=== PATIENT | male | born 1965 | race Caucasian/White ===

== ENCOUNTER 2021-11-30 16:41 | Emergency (ER) | payer OTHER, SELFPAY ==
[2021-11-30 16:42] VITALS: BP 130/82; PULSE 77; RESP 18; TEMP 37.2; O2SAT 95; BMI 22.5
--- NOTE | 2021-11-30 16:54 | EX.ED.UPPERE ---
HPI History of Present Illness Chief Complaint: Upper Extremity Injury Informant: patient and spouse/S.O. Narrative Narrative: 56-year-old male presenting to the emergency room with left shoulder injury. Patient states that he was at work today, attempting to push a box but the box did not move. He was at a bit of an angle to the box and felt a pop in the posterior aspect of his left shoulder. Since that time he has had pain with any movement. He notes it is hard for him due to the pain to lift his shoulder into abduction or even bring it anteriorly. He notes the elbow feels fine. He is right-handed. [facility] Medical History (Updated 11/30/21 @ 16:[address] Justyn Isidro DO) Benign essential HTN History of immunosuppression therapy Membranous glomerulonephritis Home Medications amlodipine [Norvasc] 10 mg PO DAILY 08/13/16 [History Last Taken Unknown] aspirin [Aspir-Low] 81 mg PO DAILY 08/13/16 [History Last Taken Unknown] atorvastatin 80 mg PO QHS 08/13/16 [History Last Taken Unknown] famotidine 20 mg PO DAILY 08/13/16 [History Last Taken Unknown] hydrochlorothiazide 25 mg PO DAILY 08/13/16 [History Last Taken Unknown] lisinopril 20 mg PO BID 08/13/16 [History Last Taken Unknown] metoprolol tartrate 150 mg PO BID 08/13/16 [History Last Taken Unknown] mycophenolate sodium 360 mg PO BID 08/13/16 [History Last Taken Unknown] mycophenolate sodium [Myfortic] 360 mg PO BID 08/13/16 [History Last Taken Unknown] prednisone 5 mg PO DAILY 08/13/16 [History Last Taken Unknown] tacrolimus 3 mg PO DAILY 08/13/16 [History Last Taken Unknown] Allergy/AdvReac Type Severity Reaction Status Date / Time sulfamethoxazole Allergy Diarrhea Verified 11/30/21 16:44 [From ] trimethoprim [From ] Allergy Diarrhea Verified 11/30/21 16:44 Surgical History Hx of kidney transplant Social History (Updated 11/30/21 @ 16:[address] Justyn Isidro DO) current gender identity: male Smoking Status: Never smoker ROS ROS ED Constitutional Constitutional ED: Denies chills, fever(s) or weight loss Eyes Eyes: Denies change in vision or diplopia ENT ENT ED: Denies ear pain, rhinorrhea or sore throat Cardiovascular Cardiovascular: Denies chest pain, orthopnea, palpitations or racing heartbeat Respiratory/Chest Respiratory/Chest: Denies cough, dyspnea or orthopnea Gastrointestinal Gastrointestinal: Denies abdominal pain, diarrhea, nausea or vomiting Genitourinary Genitourinary ED: Denies dysuria, hematuria or urinary frequency Musculoskeletal Musculoskeletal: Reports other Details: See history of present illness ; Denies arthralgias or myalgias Integumentary Denies abscess or rash Neurologic Neurologic: Denies headache(s) or weakness Psychiatric Psychiatric: Denies anxiety, depression, suicidal ideation or suicidal thoughts Endocrine Endocrinology: Denies polydipsia, polyphagia or polyuria Allergic/Immunologic Allergic/Immunologic ED: Denies mouth swelling, tongue swelling or urticaria EXAM Physical Exam Const Vital Signs: 11/30/21 16:42 Temperature 99 F Temperature Source Temporal Pulse Rate 77 Respiratory Rate 18 Blood Pressure 130/82 H Blood Pressure Mean 98 Pulse Ox 95 Oxygen Delivery Method Room Air Positive well nourished and well developed General Appearance ED: well developed HEENT Reports normocephalic, head/scalp atraumatic and moist mucous membranes normocephalic and atraumatic Eyes PERRL and EOMs intact bilaterally Neck no lymphadenopathy, supple and no JVD Resp normal respiratory effort and clear to auscultation bilaterally Cardio regular rate, regular rhythm and no murmurs GI normal to inspection, nondistended, normoactive bowel sounds and non-tender Palpation: soft Back/Spine no CVA tenderness and normal ROM Extremity Extremity Narrative: Patient has limited range of motion particularly with abduction and anterior movement of the shoulder. No pain on palpation of the anterior aspect of the shoulder or over the supraspinatus muscle. Biceps and triceps appears intact distal to the shoulder joint arm appears normal. General Extremety ED: Negative for edema General Extremity: Negative for edema Neuro oriented x3 and CN's II-XII intact bilaterally Sensorium / Orientation: alert Motor Exam: strength 5/5 throughout Psych mental status grossly normal Mood & Affect: Negative for depressed or tearful Skin no rashes or lesions noted and no wounds MDM MDM MDM Narrative Medical decision making narrative: My interpretation of the plain films of the left shoulder is no fracture. I do not see any calcific tendinosis. Biopsy findings patient is to be treated as a muscle strain. If he is not improving most likely need closer look at the shoulder with MRI. Patient will follow-up with Workmen's Comp. return if worsening or concerns he declined pain medicine while in the department Discharge Plan Triage Chief Complaint: Upper Extremity Injury ED Provider: Justyn Isidro Dx/Rx/DC Orders Clinical Impression: Muscle strain of left shoulder Instructions: Rotator Cuff Injury Prescriptions: No Action prednisone 5 MG tablet 5 mg PO DAILY RF: 0 aspirin [Aspir-Low] 81 MG Tablet.Dr 81 mg PO DAILY RF: 0 amlodipine [Norvasc] 10 MG tablet 10 mg PO DAILY RF: 0 lisinopril 10 MG tablet 20 mg PO BID RF: 0 tacrolimus 1 MG capsule 3 mg PO DAILY RF: 0 mycophenolate sodium [Myfortic] 360 MG Tablet.Dr 360 mg PO BID RF: 0 atorvastatin 80 MG tablet 80 mg PO QHS RF: 0 metoprolol tartrate 100 MG tablet 150 mg PO BID RF: 0 famotidine 20 MG tablet 20 mg PO DAILY RF: 0 hydrochlorothiazide 25 MG tablet 25 mg PO DAILY RF: 0 mycophenolate sodium 360 MG Tablet.Dr 360 mg PO BID RF: 0 Primary Care Provider: Dave Aviles Referrals: Dave Aviles MD [Primary Care Provider] - [facility] [NON-STAFF] - As soon as possible (for workers compensation follow up) Disposition Disposition: Home, Self Care
--- NOTE | 2021-11-30 17:00 | RAD_ITS ---
STUDY: X-RAY - LEFT SHOULDER REASON FOR EXAM: Male, 56 years old. pain TECHNIQUE: 4 view(s) of the shoulder. COMPARISON: None. FINDINGS: Normal glenohumeral articulation. Normal acromioclavicular joint. Normal acromion. Normal humeral head and visualized proximal humerus. The soft tissue structures are unremarkable. Normal visualized pulmonary apex. RAD/Shoulder min 2 Views IMPRESSION: Normal x-ray examination of the shoulder. Electronically Signed: August Watts MD at 17:17 EDT ,
== END 2021-11-30 17:24 | disposition home or self-care (01) ==
LOC: ED 17:01
PROVIDERS: Emergency Provider Emergency Medicine; PCP Internal Medicine; Visit Provider Emergency Medicine
DX: S46.912A Strain of unspecified muscle, fascia and tendon at shoulder and upper arm level, left arm, initial encounter (principal); I10 Essential (primary) hypertension; X50.9XXA Other and unspecified overexertion or strenuous movements or postures, initial encounter; Y93.89 Activity, other specified; Y99.0 Civilian activity done for income or pay; Y92.89 Other specified places as the place of occurrence of the external cause; Z79.899 Other long term (current) drug therapy; Z79.82 Long term (current) use of aspirin; Z79.52 Long term (current) use of systemic steroids; Z94.0 Kidney transplant status
CPT/HCPCS: 73030; 99283

== ENCOUNTER → 2021-12-23 | Outpatient (CLI) | payer OTHER, SELFPAY ==
--- NOTE | 2021-12-23 17:03 | MRI_ITS ---
STUDY: MRI LEFT SHOULDER REASON FOR EXAM: Male, 56 years old. L shoulder strain, pain following injury on 11/30/21 L shoulder strain, pain following injury on 11/30/21 TECHNIQUE: Standardized fat and water weighted pulse sequences were obtained in all 3 orthogonal planes. COMPARISON: xr Nov 30 2021 4:58pm . FINDINGS: Normal supraspinatus tendon. Normal infraspinatus tendon. Normal subscapularis tendon. Normal teres minor tendon. Normal supraspinatus muscle. Normal infraspinatus muscle. Normal subscapularis muscle. Normal teres minor muscle. Normal glenohumeral articulation. Normal humeral head and visualized proximal humerus. Normal biceps labral complex. Normal intracapsular long biceps tendon. Normal labrum. Normal capsulo- ligamentous complex. Normal rotator interval. There is mild osteoarthritis of the acromioclavicular articulation. There is a healing scapular fracture. Normal visualized coracohumeral and coracoacromial ligaments. Normal quadrilateral space. Normal axillary space. Normal deltoid muscle. Normal trapezius muscle. MRI/Upper Ext Joint Only(Routine) IMPRESSION: There is a healing scapular fracture. Electronically Signed: Jacob Diego MD at 18:55 EDT Reading Location ID and State: [facility] / [place] , Service support ,
== END | disposition home or self-care (01) ==
LOC: MRI 17:03
PROVIDERS: PCP Internal Medicine; Visit Provider Physician Assistant Surgical
DX: S46.912A Strain of unspecified muscle, fascia and tendon at shoulder and upper arm level, left arm, initial encounter (principal)
CPT/HCPCS: 73221

== ENCOUNTER 2023-04-14 17:10 | Emergency (ER) | payer OTHER, SELFPAY ==
[2023-04-14 17:10] VITALS: BP 124/91; PULSE 100; RESP 14; TEMP 36.7; O2SAT 99
[2023-04-14 17:12] VITALS: BMI 23.2
--- NOTE | 2023-04-14 17:29 | EDS_ITS ---
HPI <SERGE Zamudio - Last Filed: 04/14/23 17:34> History of Present Illness Chief Complaint: Laceration Narrative Narrative: Patient is a 57-year-old male with history of renal transplant, up-to-date on his tetanus vaccination presents to the emergency department after clipping the tip of the left fourth finger with farzana clippers. Patient denies any other injury. Bleeding controlled. Patient only blood thinners. PFSH <SERGE Zamudio - Last Filed: 04/14/23 17:34> [facility] Medical History Benign essential HTN Diabetes History of immunosuppression therapy Membranous glomerulonephritis Home Medications amlodipine 10 mg tablet (Norvasc) 10 mg PO DAILY 08/13/16 [History Last Taken Unknown] aspirin 81 mg tablet,delayed release (Aspir-Low) 81 mg PO DAILY 08/13/16 [History Last Taken Unknown] atorvastatin 80 mg tablet 80 mg PO QHS 08/13/16 [History Last Taken Unknown] famotidine 20 mg tablet 20 mg PO DAILY 08/13/16 [History Last Taken Unknown] hydrochlorothiazide 25 mg tablet 25 mg PO DAILY 08/13/16 [History Last Taken Unknown] lisinopril 10 mg tablet 20 mg PO BID 08/13/16 [History Last Taken Unknown] metoprolol tartrate 100 mg tablet 150 mg PO BID 08/13/16 [History Last Taken Unknown] mycophenolate sodium 360 mg tablet,delayed release 360 mg PO BID 08/13/16 [History Last Taken Unknown] mycophenolate sodium 360 mg tablet,delayed release (Myfortic) 360 mg PO BID 08/13/16 [History Last Taken Unknown] prednisone 5 mg tablet 5 mg PO DAILY 08/13/16 [History Last Taken Unknown] tacrolimus 1 mg capsule, immediate-release 3 mg PO DAILY 08/13/16 [History Last Taken Unknown] Allergy/AdvReac Type Severity Reaction Status Date / Time sulfamethoxazole Allergy Diarrhea Verified 04/14/23 17:10 [From ] trimethoprim [From ] Allergy Diarrhea Verified 04/14/23 17:10 Surgical History Hx of kidney transplant Social History Smoking Status: Never smoker ROS <SERGE Zamudio - Last Filed: 04/14/23 17:34> ROS ED ROS Narrative Constitutional: Negative for fever, chills, weight loss, weakness Eyes: Negative for vision loss, vision change, double vision ENT: Negative for any sore throat, ear pain, congestion Cardiovascular: Negative for any chest pain, tightness, palpitations Respiratory: Negative for any cough, sputum production, hemoptysis, dyspnea, dyspnea on exertion, orthopnea Gastrointestinal: Negative for any abdominal pain, nausea, vomiting, diarrhea, constipation, blood in stool, blood in vomit : Negative for any urinary frequency, dysuria, retention, blood in urine Muscle skeletal: Negative for any muscle joint pain, stiffness, myalgias, arthralgias, neck pain, back pain Neurological: Negative for any headache, syncope, numbness or tingling, dizziness Skin: Negative for any rashes, lumps, itching, abrasions. Positive for laceration to the tip of the left fourth finger Psychiatric: Negative for any depression, anxiety, stress, suicidal ideation, homicidal ideation Hematologic: Negative for any easy bruising, excessive bruising, easy bleeding Allergies: Negative for any eczema, hives, rash EXAM <SERGE Zamudio - Last Filed: 04/14/23 17:34> Physical Exam Narrative Exam Narrative: Vital signs reviewed. Extremities: No peripheral edema, no signs of gross trauma or deformity. Active full range of motion of all extremities. Patient has a small flap-like laceration that is superficial to the distal tip of the left fourth finger. No neurological focal deficit. Neuro: Cranial nerves II through XII intact, no focal neurological deficits. Skin: Clean dry and intact with no rash, purpura, petechiae, vesicles or pustules. Backs/flank: No CVA tenderness, no midline spinal tenderness, no deformity. Psych: Normal mood and affect. No SI, HI or acute psychosis. Const Vital Signs: 04/14/23 17:10 Temperature 98.0 F Temperature Source Temporal Pulse Rate 100 Respiratory Rate 14 Blood Pressure 124/91 H Blood Pressure Mean 102 Pulse Ox 99 Oxygen Delivery Method Room Air MDM <SERGE Zamudio - Last Filed: 04/14/23 17:34> MDM Treatment and Re-Evaluation Narrative: Patient appears generally well, patient appears nontoxic, vital signs are stable. Presenting to the emergency department for flap-like laceration to the distal tip of the fourth finger. This does not require sutures. The skin and is elevated will be cut off, this is not viable. There is no bleeding at this time. Patient will have a bacitracin dressing applied. Patient tetanus vaccination updated. He is instructed to keep the area clean and dry, he is instructed to return for any worsening symptoms. Patient stable for discharge <Dr. Chester Sol MD - Last Filed: 04/14/23 17:39> [facility] MDM Narrative Medical decision making narrative: I have personally performed a face to face assessment of the patient and have reviewed the SRINIVASA Note. I performed a substantive portion of the visit including all aspects of the following. My stover findings include: History is [57-year-old male with prior renal transplant. Laceration to the tip of his left ring finger. No other injuries. Tetanus up-to-date.] Exam is [male male no acute distress. Vital signs stable afebrile. H EENT exam unremarkable. Lungs clear. Heart regular rhythm. Abdomen soft nontender. Moving all 4 extremities. Left hand ring finger distal tip is a superficial flap laceration. No bleeding. No infection. No foreign body. Discussed with patient laceration repair versus resection of the flap and he chose that. Flap was removed.] Medical Decision Making [patient's wound care. Discharge.] Other additions or changes: [None] Discharge Plan Triage Chief Complaint: Laceration ED Midlevel Provider: Edvin Mcdonald ED Provider: Chester Sol Dx/Rx/DC Orders Clinical Impression: Laceration Instructions: ED Laceration Small or ..., ED Laceration Minimize Scars Prescriptions: No Action prednisone 5 MG tablet 5 mg PO DAILY aspirin [Aspir-Low] 81 MG tablet,delayed release (DR/EC) 81 mg PO DAILY amlodipine [Norvasc] 10 MG tablet 10 mg PO DAILY Patient Comments: patient unsure of dose, thinks it is 10mg lisinopril 10 MG tablet 20 mg PO BID tacrolimus 1 MG capsule 3 mg PO DAILY Patient Comments: 2mg in AM, 1mg in PM mycophenolate sodium [Myfortic] 360 MG tablet,delayed release (DR/EC) 360 mg PO BID atorvastatin 80 MG tablet 80 mg PO QHS metoprolol tartrate 100 MG tablet 150 mg PO BID famotidine 20 MG tablet 20 mg PO DAILY hydrochlorothiazide 25 MG tablet 25 mg PO DAILY mycophenolate sodium 360 MG tablet,delayed release (DR/EC) 360 mg PO BID Primary Care Provider: Dave Aviles Referrals: Dave Aviles MD [Primary Care Provider] - Activity Restrictions/Additional Instructions: Please keep the area clean and dry. Disposition Disposition: Home, Self Care
== END 2023-04-14 17:47 | disposition home or self-care (01) ==
PROVIDERS: Emergency Provider Emergency Medicine; PCP Internal Medicine; Visit Provider Emergency Medicine
DX: S61.215A Laceration without foreign body of left ring finger without damage to nail, initial encounter (principal); E11.9 Type 2 diabetes mellitus without complications; I10 Essential (primary) hypertension; Z94.0 Kidney transplant status; W27.1XXA Contact with garden tool, initial encounter; Y93.H2 Activity, gardening and landscaping; Z23 Encounter for immunization
CPT/HCPCS: 99282